=== PATIENT | female | born 1980 | race Caucasian/White ===

== ENCOUNTER 2023-06-18 13:22 | Emergency (ER) | payer BC, SELFPAY ==
[2023-06-18] VITALS (20 sets, daily range): BP systolic 116–137; BP diastolic 78–80; PULSE 67–95; RESP 12–20; TEMP 36.9; O2SAT 91–100; BMI 38.7
--- NOTE | 2023-06-18 13:37 | ECG_ITS ---
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
--- NOTE | 2023-06-18 13:38 | ED_ITS ---
HPI - Chest Pain General Chief Complaint: Chest Pain Stated Complaint: HEART PALPITATIONS Time Seen by Provider: 06/18/23 13:25 Source: patient Limitations: no limitations History of Present Illness HPI narrative: patient is a 42-year-old female who presents to the emergency department for the evaluation of intermittent palpitations for the last three days. She states she has a sensation that her heart is fluttering. She states she drinks one cup of coffee a day. She does not smoke. She denies chest pain. She states when she has a palpitations, it takes her breath away but she has not had any persistent shortness of breath. She has had no fevers, chills, cough, congestion, vomiting or diarrhea. She denies any history of cardiopulmonary problems. She does not take any prescription medications on a daily basis. She is not concerned for . Risk Factors Coronary artery disease risk factors: none Related Data Home Medications Medication Instructions Recorded Confirmed No Known Home Medications 06/18/23 06/18/23 Previous Rx's Medication Instructions Recorded ferrous sulfate 220 mg (44 mg 22 mg (0.5 mL) PO DAILY #50 mL 06/18/23 iron)/5 mL oral solution Allergies Allergy/AdvReac Type Severity Reaction Status Date / Time No Known Drug Allergies Allergy Verified 06/18/23 13:27 Review of Systems ROS Constitutional Denies: fever or chills Ears, nose, mouth, and throat Denies: throat pain Cardiovascular Reports: palpitations; Denies: chest pain or edema Respiratory Denies: shortness of breath or cough Gastrointestinal Denies: nausea, vomiting or diarrhea Genitourinary Denies: painful urination Musculoskeletal Denies: back pain Integumentary/Breast Denies: rash PFSH PFS Social History Smoking status: Former smoker Exam Narrative Exam Narrative: Gen.: Awake, alert, in no distress; morbidly obese female Head: Normocephalic, atraumatic ENT: Moist mucous membranes Respiratory: No respiratory distress, lungs clear bilaterally Cardio: Regular rate and rhythm Extremities: Moves extremities equally Psych: Normal mood and affect Neuro: No focal neuro deficit Skin: Warm, dry, intact Constitutional Vital Signs, click to edit/add: Last Vital Signs Temp 98.5 F 06/18/23 13:27 Pulse 71 06/18/23 15:40 Resp 13 06/18/23 15:40 BP 116/78 06/18/23 15:35 Pulse Ox 100 06/18/23 15:40 O2 Del Method Room Air 06/18/23 14:14 Course Vital Signs Vital signs: Vital Signs Temperature 98.5 F 06/18/23 13:27 Pulse Rate 95 H 06/18/23 13:27 Respiratory Rate 18 06/18/23 13:27 Blood Pressure 127/80 06/18/23 13:27 Pulse Oximetry 98 06/18/23 13:27 Oxygen Delivery Method Room Air 06/18/23 13:27 Temperature 98.5 F 06/18/23 13:27 Pulse Rate 71 06/18/23 15:40 Respiratory Rate 13 06/18/23 15:40 Blood Pressure 116/78 06/18/23 15:35 Pulse Oximetry 100 06/18/23 15:40 Oxygen Delivery Method Room Air 06/18/23 14:14 MDM - Chest Pain MDM Narrative Medical decision making narrative: patient treated with IV fluids, she maintains normal cardiac monitoring although she is noted to have an occasional PVC which does correlate with her sensation of palpitations. She has unremarkable labs with the exception of anemia. Based on her CBC results, we suspect iron deficiency anemia and additional lab studies were ordered to test for iron deficiency anemia as an outpatient. Chest x-ray, d-dimer, troponin within normal limits. Patient is started on iron supplementation to follow-up closely with her PCP, I did attempt to page Dr. cast to discuss results with him but patient was instructed just to call the office on Wednesday for appointment and return to the emergency department if symptoms change or worsen. She may still need a Holter monitor as an outpatient. Medical Records Data Attestation: I reviewed the patient's medical records. Lab Data Attestation: I reviewed the patient's lab results. Labs: Lab Results 06/18/23 Range/Units 13:38 WBC 6.4 (4.0-11.0) 10^3/uL RBC 4.26 (4.20-5.40) 10^6/uL Hgb 8.6 L (12.0-16.0) g/dL Hct 29.8 L (36.0-48.0) % MCV 70.0 L (81.0-99.0) fL MCH 20.2 L (26.7-34.0) pg MCHC 28.9 L (29.9-35.2) g/dL RDW 18.4 H (11.0-15.0) % Plt Count 368 (150-450) 10^3/uL MPV 9.7 (9.5-13.5) fL Neut % (Auto) 59.3 (43.0-75.0) % Lymph % (Auto) 29.3 (20.5-60.0) % [place] % (Auto) 6.8 (1.7-12.0) % Eos % (Auto) 3.6 (0.9-7.0) % Baso % (Auto) 0.8 (0.2-2.0) % Neut # (Auto) 3.8 (1.4-6.5) 10^3/uL Lymph # (Auto) 1.9 (1.2-3.8) 10^3/uL [place] # (Auto) 0.4 (0.3-0.8) 10^3/uL Eos # (Auto) 0.2 (0.0-0.7) 10^3/uL Baso # (Auto) 0.1 (0.0-0.1) 10^3/uL Abs Immat Gran (auto) 0.01 (0.00-0.03) 10^3/uL Imm/Tot Granulo (auto) 0.2 (0.0-0.5) % PT 10.0 (9.0-11.6) sec INR 0.94 APTT 25.6 (22.3-36.2) sec D-Dimer 0.44 (<=0.59) mg/L FEU Sodium 140 (136-145) mmol/L Potassium 3.4 L (3.5-5.1) mmol/L Chloride 103 (98-107) mmol/L Carbon Dioxide 27.0 (21.0-32.0) mmol/L Anion Gap 13.4 BUN 18.0 (7.0-18.0) mg/dL Creatinine 0.72 (0.55-1.02) mg/dL Est GFR ( Amer) >60 (>=60) Est GFR (Non-Af Amer) >60 (>=60) BUN/Creatinine Ratio 25.0 Glucose 97 (74-106) mg/dL Calcium 8.8 (8.5-10.1) mg/dL Total Bilirubin 0.4 (0.2-1.0) mg/dL AST 12 L (15-37) U/L ALT 18 (14-59) U/L Alkaline Phosphatase 79 (46-116) U/L Troponin I High Sens <4.0 L (4.0-51.3) pg/mL NT-Pro-B Natriuret Pep 68.0 (<=450.0) pg/mL Total Protein 8.0 (6.4-8.2) g/dL Albumin 3.5 (3.4-5.0) g/dL Globulin 4.5 g/dL Albumin/Globulin Ratio 0.8 TSH 0.936 (0.358-3.740) uIU/mL Serum HCG, Qual Negative (NEGATIVE) Imaging Data Chest x-ray: Attestation: I have reviewed the pertinent imaging results. Radiologist's impression: Procedure: XR chest 1V EXAMINATION: XR chest 1V HISTORY: Palpitations COMPARISON: 04/14/2022 TECHNIQUE: AP portable FINDINGS: LUNGS: No significant pulmonary parenchymal abnormalities. VASCULATURE: No increased pulmonary vasculature. PLEURA: No pneumothorax, effusion, or pleural thickening. CARDIAC: No cardiomegaly or cardiac silhouette abnormality. MEDIASTINUM: No visible mass or adenopathy. BONES: No fracture or visible bone lesion. OTHER: Negative. IMPRESSION: No acute disease. Electronically authenticated by: GINNY REARDON Date: 06/18/2023 15:14 ECG Data Attestation: I personally reviewed and interpreted this ECG as follows: (normal sinus rhythm at a rate of seventy-six, no acute ST elevation or ectopy. EKG reviewed by attending physician) ECG interpretation date: 06/18/23 ECG interpretation time: 13:40 Discharge Plan Discharge Chief Complaint: Chest Pain Clinical Impression: Palpitations, Anemia Patient Disposition: Home, Self-Care Time of Disposition Decision: 15:18 Condition: Good Prescriptions / Home Meds: New ferrous sulfate 220 mg (44 mg iron)/5 mL solution 22 mg PO DAILY Qty: 50 0RF No Action No Known Home Medications Instructions: Heart Palpitations (ED), Anemia (ED) Additional Instructions: please call Dr. cast's office on Wednesday to be scheduled for an appointment to discuss your lab studies and a possible Holter monitor. Stand Alone Forms: Portal Instructions Referrals: Casey Cast, DO [Primary Care Provider] - As soon as possible
[2023-06-18 13:45] LABS: Basophils Absolute Auto 0.1 10^3/uL (0.0-0.1); Basophils Percent Auto 0.8 % (0.2-2.0); Eosinophils Absolute Auto 0.2 10^3/uL (0.0-0.7); Eosinophils Percent Auto 3.6 % (0.9-7.0); Hematocrit 29.8 % (36.0-48.0); Hemoglobin 8.6 g/dL (12.0-16.0); Immature Granulocytes Abs Auto 0.01 10^3/uL (0.00-0.03); Immature Granulocytes Pct Auto 0.2 % (0.0-0.5); Lymphocytes Absolute Auto 1.9 10^3/uL (1.2-3.8); Lymphocytes Percent Auto 29.3 % (20.5-60.0); Mean Corpuscular HGB Conc 28.9 g/dL (29.9-35.2); Mean Platelet Volume 9.7 fL (9.5-13.5); Monocytes Absolute Auto 0.4 10^3/uL (0.3-0.8); Monocytes Percent Auto 6.8 % (1.7-12.0); Neutrophils Absolute Auto 3.8 10^3/uL (1.4-6.5); Neutrophils Percent Auto 59.3 % (43.0-75.0); Platelet Count 368 10^3/uL (150-450); Red Blood Count 4.26 10^6/uL (4.20-5.40); White Blood Count 6.4 10^3/uL (4.0-11.0)
[2023-06-18 13:59] LABS: Mean Corpuscular Hemoglobin 20.2 pg (26.7-34.0); Red Cell Distribution Width 18.4 % (11.0-15.0)
[2023-06-18 14:01] LABS: HCG Qualitative NEGATIVE (NEGATIVE)
[2023-06-18 14:07] LABS: D Dimer 0.44 mg/L FEU (<=0.59); INR 0.94; Partial Thromboplastin Time 25.6 sec (22.3-36.2)
[2023-06-18 14:22] LABS: Alanine Aminotransferase 18 U/L (14-59); Albumin Globulin Ratio 0.8; Albumin Level 3.5 g/dL (3.4-5.0); Alkaline Phosphatase 79 U/L (46-116); Anion Gap 13.4; Aspartate Amino Transferase 12 U/L (15-37); Bilirubin Total 0.4 mg/dL (0.2-1.0); Calcium 8.8 mg/dL (8.5-10.1); Chloride 103 mmol/L (98-107); Estimated GFR (African America >60 (>=60); Estimated GFR (Non-African Ame >60 (>=60); Globulin 4.5 g/dL; Glucose 97 mg/dL (74-106); Potassium 3.4 mmol/L (3.5-5.1); Sodium 140 mmol/L (136-145); Thyroid Stimulating Hormone 0.936 uIU/mL (0.358-3.740); Troponin I High Sensitivity <4.0 pg/mL (4.0-51.3)
--- NOTE | 2023-06-18 14:39 | XR_ITS ---
The [address] [address] Patient Name: ELVIA BELL MRN: [id number] date: 1980 Sex: F Assigned Patient Location: ED.MAIN Current Patient Location: ER Accession/Order Number: [id number] Exam Date: 06/18/2023 14:49 Report Date: 06/18/2023 15:14 At the request of: WINIFRED TAPIA Procedure: XR chest 1V EXAMINATION: XR chest 1V HISTORY: Palpitations COMPARISON: 04/14/2022 TECHNIQUE: AP portable FINDINGS: LUNGS: No significant pulmonary parenchymal abnormalities. VASCULATURE: No increased pulmonary vasculature. PLEURA: No pneumothorax, effusion, or pleural thickening. CARDIAC: No cardiomegaly or cardiac silhouette abnormality. MEDIASTINUM: No visible mass or adenopathy. BONES: No fracture or visible bone lesion. OTHER: Negative. XR/XR chest 1V IMPRESSION: No acute disease. Electronically authenticated by: GINNY REARDON Date: 06/18/2023 15:14
[2023-06-18 16:07] LABS: Percent Iron Saturation 3.2 %
== END 2023-06-18 16:16 | disposition home or self-care (01) ==
PROVIDERS: Physician Assistant; Emergency Provider Emergency Medicine; PCP Internal Medicine
DX: R00.2 Palpitations (principal); D64.9 Anemia, unspecified; Z87.891 Personal history of nicotine dependence; E66.01 Morbid (severe) obesity due to excess calories; Z68.38 Body mass index [BMI] 38.0-38.9, adult
CPT/HCPCS: 36415; 71045; 80053; 82728; 83540; 83550; 83880; 84443; 84484; 84703; 85025; 85378; 85610; 85730; 93005; 99285

== ENCOUNTER 2024-07-06 08:45 | Outpatient (OUT) | payer BC, SELFPAY ==
[2024-07-06 09:01] LABS: Basophils Percent Auto 0.5 % (0.2-2.0); Eosinophils Absolute Auto 0.4 10^3/uL (0.0-0.7); Hematocrit 30.4 % (36.0-48.0); Immature Granulocytes Abs Auto 0.01 10^3/uL (0.00-0.03); Immature Granulocytes Pct Auto 0.2 % (0.0-0.5); Lymphocytes Absolute Auto 1.9 10^3/uL (1.2-3.8); Lymphocytes Percent Auto 32.3 % (20.5-60.0); Mean Corpuscular HGB Conc 29.6 g/dL (29.9-35.2); Mean Corpuscular Hemoglobin 20.5 pg (26.7-34.0); Mean Corpuscular Volume 69.1 fL (81.0-99.0); Mean Platelet Volume 9.1 fL (9.5-13.5); Monocytes Absolute Auto 0.4 10^3/uL (0.3-0.8); Neutrophils Absolute Auto 3.2 10^3/uL (1.4-6.5); Platelet Count 354 10^3/uL (150-450); Red Cell Distribution Width 17.6 % (11.0-15.0); White Blood Count 5.9 10^3/uL (4.0-11.0)
[2024-07-06 09:19] LABS: Estimated Average Glucose 108 mg/dL; Glycohemoglobin A1C 5.4 % (4.5-6.2)
[2024-07-06 09:29] LABS: Alanine Aminotransferase 17 U/L (14-59); Albumin Globulin Ratio 0.7; Albumin Level 3.1 g/dL (3.4-5.0); Alkaline Phosphatase 79 U/L (46-116); Aspartate Amino Transferase 11 U/L (15-37); BUN Creatinine Ratio 24.7; Bilirubin Total 0.5 mg/dL (0.2-1.0); Calcium 8.4 mg/dL (8.5-10.1); Carbon Dioxide 25.9 mmol/L (21.0-32.0); Chloride 107 mmol/L (98-107); Cholesterol 141 mg/dL (<=200); Estimated GFR (African America >60 (>=60 mL/min/1.73m^2); Estimated GFR (Non-African Ame >60 (>=60 mL/min/1.73m^2); Globulin 4.4 g/dL; Glucose 94 mg/dL (74-106); HDL Cholesterol 69 mg/dL (40-60); Potassium 3.9 mmol/L (3.5-5.1); Sodium 141 mmol/L (136-145); Thyroid Stimulating Hormone 1.507 uIU/mL (0.358-3.740); Total Protein 7.5 g/dL (6.4-8.2); Triglycerides 53 mg/dL (<=150); VLDL CHOLESTEROL 10.6 mg/dL
== END 2024-07-06 08:46 | disposition home or self-care (01) ==
LOC: LAB 08:47
PROVIDERS: PCP Internal Medicine; Visit Provider Internal Medicine
DX: Z00.00 Encounter for general adult medical examination without abnormal findings (principal)
CPT/HCPCS: 36415; 80053; 80061; 83036; 84443; 85025